=== PATIENT | female | born 1950 | race Caucasian/White ===

== ENCOUNTER 2023-09-20 11:15 | Outpatient (AMB) | payer MEDICARE, SELFPAY ==
--- NOTE | 2023-09-20 11:20 | A.OFFVIS_ITS ---
Intake Vital Signs 09/20/23 11:43 Height 5 ft 8 in Weight 190 lb BMI 28.9 BP 132/70 Blood Pressure Location Lt brachial Position Sitting Pulse 70 Pulse Source Pulse Oximeter Pulse Oximetry (%) 97 Oxygen Delivery Method Room Air Intake Visit Reasons: AWV Allergies No Known Allergies Allergy (Verified 09/20/23 11:21) Medication List - Last Reconciled 09/20/23 by Gena Ralph MD cholecalciferol (vitamin D3) 50 mcg PO DAILY ciclopirox 8% mL topical BEDTIME [coq 10 PO] levothyroxine mcg PO melatonin 10 mg PO BEDTIME PRN pravastatin 20 mg PO DAILY progesterone micronized PO rhubarb root extract (Estroven Complete Menopause Relief) mg PO HPI AWV HPI Details Pt c/o R shoulder pain worse at rest and at night for a few months. Pt tried PT last year and good relief, but the pain has been getting progressively worse and patient can not reach overhead or behind her back without pain. Initia unique the conversation about Advanced Directives. Advanced Directives help? patients prepare for current and future decisions about their medical treatment? and place of care. Discussed with patient that it is a process where a patients? current condition and prognosis are reviewed, their wishes for information? regarding their illness are elicited, and likely medical dilemmas are presented? and options discussed. The form can be amended as needed, reviewed yearly and? make changes as needed IPPE/AWV ? year old presents? for her ? Annual? Wellness Visit, initial visit.? Medical / Social History Reviewed? Past Medical History ?Yes? . ? [place]? of Care / Care Team list updated ?Yes . ? Surgical/Hospitalization? History ?Yes . ? Current Medications? (including OTC and supplements) ?Yes . ? Family History ?Yes? . ? Tobacco? Control form ?Yes . ? AUDIT-C (Alcohol use) form? ?Yes . ? Illicit drug use in Social? History ?Yes . ? Current diagnosis of? depression? ?No ? Appropriate PHQ2/PHQ9? completed ?Yes . ? Data entered by ?Medical? Tube Draw Helper and reviewed by provider ? Fall Risk ? Fall? History? Have you had any falls with? injury in the past year? ?No . ? Have you had two or more? falls in the past year? ?No . ? Fall Risk Assessment: ?No? falls in the past year . ? HRA filled out by? the patient, reviewed by Provider and scanned. ? IPPE/AWV ? Balance? [place]? ?Yes . ? Tandem? walk ?Yes . ? Walk and? Turn ?Yes . ? Rise from? sit to stand ?Yes . ?Vision? Corrective? lens ?Yes ? Vision? screen ? Up-to-date, has an appointment [] for vision? screening and glaucoma screening ?Hearing? Whisper? test ?pass .? Initiated the conversation about Advanced Directives. Advanced Directives help? patients prepare for current and future decisions about their medical treatment? and place of care. Discussed with patient that it is a process where a patients? current condition and prognosis are reviewed, their wishes for information? regarding their illness are elicited, and likely medical dilemmas are presented? and options discussed. The form can be amended as needed, reviewed yearly and? make changes as needed Written? Plan?Completed. See Patient? Documents. [facility] Medical History Annual physical exam Hyperglycemia Hyperlipidemia Hypothyroidism Normal pelvic exam Surgical History H/O colonoscopy Social History Housing: House Patient Tobacco Use Status: Former Tobacco user (30 years ago) e-Cigarette/Vaping Use: Never Used Current occupational status: retired Cognitive needs: No Hearing needs: No Vision needs: Yes Questionnaire Medicare Wellness Checkup [age] What gender do you identify with?: female During the past 4 weeks, how much have you been bothered by emotional problems such as feeling anxious, depressed, irritable, sad or downhearted, and blue?: not at all During the past 4 weeks, has your physical & emotional health limited your social activities with family, friends, neighbors, or groups?: not at all During the past 4 weeks, how much bodily pain have you generally had?: mild pain During the past 4 weeks, was someone available to help you if you needed & wanted help?: yes, as much as I wanted During the past 4 weeks, what was the hardest physical activity you could do for at least 2 minutes?: moderate Can you get to places out of walking distance without help? (For eg., can you travel alone on buses, taxis or drive your car?): Yes Can you go shopping for groceries or clothes without someone's help?: Yes Can you prepare your own meals?: Yes Can you do your housework without help?: Yes Because of any health problems, do you need the help of another person with your personal care needs such as eating, bathing, dressing or getting around the house?: No Can you handle your own money without help?: Yes During the past 4 weeks, how would you rate your health in general?: good During the past 4 weeks how have things been going for you?: pretty well Are you having difficulties driving your car?: no Do you always fasten your seat belt when you are in a car?: yes, usually During past 4 weeks, have you been bothered by the following: never: Falling or dizzy when standing up, Sexual problems?, Trouble eating well?, Teeth or denture problems?, Problems using the telephone? and Tiredness or fatigue? Have you fallen 2 or more times in the past year?: No Are you afraid of falling?: No Are you a smoker?: no During the past 4 weeks, how many drinks of wine, beer, or other alcoholic beverages did you have?: 2-5 drinks per week Do you exercise for about 20 minutes 3 or more times a week?: yes, some of the time Have you been given information to help with the following?: no: Hazards in your house that might hurt you? and no: Keeping track of your medications? How often do you have trouble taking medicines the way you have been told to take them?: I always take medicine as prescribed How confident are you that you can control & manage most of your health problems?: very confident What is your race?: White Mini Mental State Exam (MMSE) Orientation What is the (year) (season) (date) (day) (month)?: year, season, date, day and month Where are we (state) (county) (town or city) (hospital) (floor)?: state, county, town or city, hospital/clinic and floor Registration Name of 3 unrelated objects clearly and slowly, then ask patient to repeat all 3 of them. (1st repeat determines score. Make sure they can repeat all three): object 1, object 2 and object 3 Attention & Calculation (CHOOSE ONE) Ask pt to begin with 100 & count backward by 7. Stop after 5 repeats. If pt cannot ask them to spell the word WORLD backward.: 93 Spell WORLD backwards (DLROW): 5 letters Recall Ask patient to repeat the 3 items from question #3.: object 1, object 2 and object 3 Language Show patient a wristwatch & ask what it is. Repeat for pencil.: watch and pencil Ask the patient to repeat the phrase 'No ifs, ands, or buts' after you.: correct Ask the patient to 'take a piece of paper with their right hand' 'fold paper in half' 'place paper on floor': take paper in right hand, fold paper in half and place paper on floor Print the sentence 'CLOSE YOUR EYES' on a piece. If patient actually closes eyes then score.: followed written direction Give patient a blank piece of paper & ask to write a sentence. Score if it contains a noun & verb.: sentence contains subject and verb Score Score: 30 Activity of Daily Living Bathing - sponge bath, tub bath or shower: receives no assistance (gets in/out by self, if usual bathing means Dressing - getting clothes from closets & drawers, including inner/outer garments & fasteners.: gets clothes & gets completely dressed without help Toileting - going to the 'toilet room' for urine/bowel elimination & cleaning self/arranging clothes: goes to toilet room, cleans self, arranges clothes without help Transfer: moves in & out of bed and chair without help (may use support object) Continence: controls urination/bowel movements completely by self Feeding: feeds self without help Total Score: 0 Information obtained from: patient Using telephone: independent Traveling: independent Shopping: independent Preparing meals: independent Housework: independent Taking medicine: independent Managing money: independent PHQ-9 Over the last 2 weeks, how often have you been bothered by any of the following problems? 1. Little interest or pleasure in doing things: not at all 2. Feeling down, depressed, or hopeless: not at all 3. Trouble falling or staying asleep, or sleeping too much: not at all 4. Feeling tired or having little energy: not at all 5. Poor appetite or overeating: not at all 6. Feeling bad about yourself - or that you are a failure or have let yourself or your family down: not at all 7. Trouble concentrating on things, such as reading the newspaper or watching television: not at all 8. Moving or speaking so slowly that other people could have noticed. Or the opposite - being so fidgety or restless that you have been moving around a lot more than usual: not at all 9. Thoughts that you would be better off or of hurting yourself in some way: not at all Total score: 0 Depression Screening Interpretation: Negative Depression Screening Done: Yes Source: Developed by Drs. Wade Sevilla, Lesvia De Souza, Addy Gifford and colleagues, with an educational anaid from [employer]. Review of Systems Const All systems reviewed & are unremarkable except as noted in HPI and below Eyes Reports no additional complaints ENT Reports no additional complaints Card Reports no additional complaints Resp Reports no additional complaints GI Reports no additional complaints Reports no additional complaints Physical Exam Vital Signs: Last Vital Signs Pulse 70 09/20/23 11:43 BP 132/70 09/20/23 11:43 Pulse Ox 97 09/20/23 11:43 Oxygen Delivery Method Room Air 09/20/23 11:43 BMI result Body Mass Index 28.9 Const General: no acute distress HEENT Head: Yes normal to inspection Neck Neck: Yes supple Resp Effort & Inspection: normal respiratory effort Auscultation: clear to auscultation bilaterally Cardio Rhythm: regular rhythm Heart sounds: S1 normal heart sound present and S2 normal heart sound present GI Inspection: Yes normal to inspection Palpation (GI): Soft to palpation Auscultation: normal bowel sounds Extrem Other: There is significantly decreased range of motion right shoulder anterior lateral aspect tenderness Assessment & Plan Assessment & Plan (1) Right shoulder pain: Code(s): M25.511 - Pain in right shoulder Plan: Check x-ray and MRI of right shoulder to evaluate for rotator cuff pathology patient will be referred to orthopedic surgeon of her choice when results are available (2) Annual physical exam: Code(s): Z00.00 - Encounter for general adult medical examination without abnormal findings Plan: Well-balanced diet regular physical activity discussed with the patient. (3) Hyperlipidemia: Code(s): E78.5 - Hyperlipidemia, unspecified Plan: Continue pravastatin (4) Hypothyroidism: Comment: f/u by Endocrinology Code(s): E03.9 - Hypothyroidism, unspecified Plan: Continue levothyroxine (5) Hyperglycemia: Code(s): R73.9 - Hyperglycemia, unspecified Plan: Continue ADA diet (6) Vitamin B12 deficiency: Code(s): E53.8 - Deficiency of other specified B group vitamins Plan: Continue vitamin B12 supplement (7) Vitamin D deficiency: Code(s): E55.9 - Vitamin D deficiency, unspecified Plan: Continue vitamin-D supplement Orders: Orders XR shoulder RT min 2V Today M25.511 - Pain in right shoulder PT Evaluation and Treatment Today M25.511 - Pain in right shoulder Comprehensive [place]. Panel Fast 1 Year E03.9 - Hypothyroidism, unspecified, E53.8 - Deficiency of other specified B group vitamins, E55.9 - Vitamin D deficiency, unspecified, E78.5 - Hyperlipidemia, unspecified, R73.9 - Hyperglycemia, unspecified, Z00.00 - Encounter for general adult medical examination without abnormal findings Vitamin B12 and Folate 1 Year E03.9 - Hypothyroidism, unspecified, E53.8 - Deficiency of other specified B group vitamins, E55.9 - Vitamin D deficiency, unspecified, E78.5 - Hyperlipidemia, unspecified, R73.9 - Hyperglycemia, unspecified, Z00.00 - Encounter for general adult medical examination without abnormal findings Hemoglobin A1c 1 Year E03.9 - Hypothyroidism, unspecified, E53.8 - Deficiency of other specified B group vitamins, E55.9 - Vitamin D deficiency, unspecified, E78.5 - Hyperlipidemia, unspecified, R73.9 - Hyperglycemia, unspecified, Z00.00 - Encounter for general adult medical examination without abnormal findings Vitamin D 25-OH Total 1 Year E03.9 - Hypothyroidism, unspecified, E53.8 - Deficiency of other specified B group vitamins, E55.9 - Vitamin D deficiency, unspecified, E78.5 - Hyperlipidemia, unspecified, R73.9 - Hyperglycemia, unspecified, Z00.00 - Encounter for general adult medical examination without abnormal findings MR shoulder RT wo con Today M12.811 - Other specific arthropathies, not elsewhere classified, right shoulder Complete Blood Count Auto Diff 1 Year E03.9 - Hypothyroidism, unspecified, E53.8 - Deficiency of other specified B group vitamins, E55.9 - Vitamin D deficiency, unspecified, E78.5 - Hyperlipidemia, unspecified, R73.9 - Hyperglycemia, unspecified, Z00.00 - Encounter for general adult medical examination without abnormal findings Lipid Panel 1 Year E03.9 - Hypothyroidism, unspecified, E53.8 - Deficiency of other specified B group vitamins, E55.9 - Vitamin D deficiency, unspecified, E78.5 - Hyperlipidemia, unspecified, R73.9 - Hyperglycemia, unspecified, Z00.00 - Encounter for general adult medical examination without abnormal findings Referrals Cologuard Test Z12.11 - Encounter for screening for malignant neoplasm of colon, Z12.12 - Encounter for screening for malignant neoplasm of rectum Quality Reporting (2019) Depression/Bipolar (159/160/161/177) PHQ-9: Total score: 0 Coding Level of Care Code Medicare Subsequent (G0439) Diagnoses Right shoulder pain M25.511 Annual physical exam Z00.00 Hyperlipidemia E78.5 Hypothyroidism E03.9 Hyperglycemia R73.9 Vitamin B12 deficiency E53.8 Vitamin D deficiency E55.9 CPT Codes Advance Care Planning - Advance Care Planning discussion: On file, no changes ([id number]) Advance Care Planning - Time spent: 1-15 minutes, on File ([id number]) Advance Care Planning Advance Care Planning discussion: On file, no changes Forms completed: Health Care Proxy Time spent: 1-15 minutes, on File
[2023-09-20 11:43] VITALS: BP 132/70; PULSE 70; O2SAT 97; BMI 28.9
== END 2023-09-20 12:36 | disposition home or self-care (01) ==
PROVIDERS: PCP Internal Medicine; Visit Provider Internal Medicine
DX: Z00.00 Encounter for general adult medical examination without abnormal findings (principal); M25.511 Pain in right shoulder; E78.5 Hyperlipidemia, unspecified; E03.9 Hypothyroidism, unspecified; R73.9 Hyperglycemia, unspecified; E53.8 Deficiency of other specified B group vitamins; E55.9 Vitamin D deficiency, unspecified
CPT/HCPCS: 1123F; G0439

== ENCOUNTER 2023-09-20 12:36 | Outpatient (REF) | payer MEDICARE, SELFPAY ==
--- NOTE | ~2023-09-20 | XR_ITS ---
EXAMINATION: XR SHOULDER, RIGHT CLINICAL INFORMATION: Pain in right shoulder COMPARISON: None available. TECHNIQUE: AP external rotation, Grashey, scapular Y, and axillary views of the right shoulder. FINDINGS: Glenohumeral joint: Large marginal osteophyte along the inferior aspect of humeral head. Severe joint space narrowing. Mild osteoarthritis of the acromioclavicular joint with small marginal osteophytes. Incidental note made of spondylosis of the partially visualized cervical spine XR/XR shoulder RT min 2V IMPRESSION: Advanced osteoarthritis of the glenohumeral joint. Mild osteoarthritis of acromioclavicular joint.
== END 2023-09-20 12:37 | disposition home or self-care (01) ==
LOC: HO.HMGCX 12:36
PROVIDERS: PCP Internal Medicine; Visit Provider Internal Medicine
DX: M25.511 Pain in right shoulder (principal)
CPT/HCPCS: 73030

== ENCOUNTER 2024-06-26 13:33 | Outpatient (REF) | payer MEDICARE, SELFPAY ==
[2024-06-26 16:10] LABS: MANUAL DIFF FLAG NO
[2024-06-26 16:18] LABS: Basophils Percent Auto 0.5 % (0-2); Eosinophils Absolute Auto 0.3 X10*3/uL (0.0-0.4); Eosinophils Percent Auto 2.9 % (0-4); Hematocrit 44.4 % (37.0-47.0); Hemoglobin 14.3 g/dl (12.0-16.0); Imm Gran Abs Auto 0.04 X10*3/uL (0.00-0.03); Imm Gran Pct Auto 0.5 % (0.0-0.4); Lymphocytes Absolute Auto 2.2 X10*3/uL (1.2-4.9); Lymphocytes Percent Auto 25.6 % (20-40); Mean Corpuscular HGB Conc 32.2 g/dl (31.0-35.0); Mean Corpuscular Hemoglobin 29.4 pg (27.0-33.0); Mean Corpuscular Volume 91.2 fL (80.0-98.0); Mean Platelet Volume 10.3 fL (9.4-12.3); Monocytes Absolute Auto 0.5 X10*3/uL (0.1-1.2); Monocytes Percent Auto 5.7 % (2-11); Neutrophils Absolute Auto 5.6 x10*3/uL (2.0-8.3); Neutrophils Percent Auto 64.8 % (45-73); Platelet Count 364 X10*3/uL (160-400); Red Blood Count 4.87 X10*6/uL (4.20-5.50); Red Cell Distribution Width 12.3 % (11.0-16.0); White Blood Count 8.6 X10*3/uL (4.8-10.8)
[2024-06-26 16:24] LABS: Estimated Average Glucose 117 mg/dL; Hemoglobin A1c % 5.7 % (<6.0)
[2024-06-26 16:27] LABS: B Type Natriuretic Peptide 19 pg/mL (<100)
--- OUTSIDE RECORDS SUMMARY | 2024-06-26 17:00 | XMS_ITS | Encounter Summary ---
Author Organization [facility] Address [phone] [place] [address] Care Team Providers Care Walnut Dehydrator Operator Name Role Phone Gena Ralph MD Primary Care Provider [phone] Encounter Details Date Type Department Care Team (Late st Contact Info) Description 05/04/2024 Orders Only [facility] [address] [place] [address] Sandee Harrison MA [address] [place] [phone] [email or web address] Acquired hypothyroidism Social History Tobacco Use Types [...] AM EDT Office Visit [facility] [address] [place] [address] Marlys Fournier MD [address] [place] [phone] [email or web address] documented as of this encounter Procedures Procedure Name Priority Date/Time Associated Diagnosis Comments TSH WITH REFLEX Routine 05/01/2024 12:04 PM EST Acquired hypothyroidism documented in this encounter Results * TSH with reflex (05/01/2024 12:04 PM EST) Blood Marlys Fournier MD LAB BLOOD ORDE [facility] [address] [address] documented in this encounter Visit Diagnoses Diagnosis Acquired hypothyroidism Unspecified hypothyroidism documented in this encounter Care Teams Walnut Dehydrator Operator Relationship Specialty Start Date End Date Gena Ralph MD [address] [place] [address] PCP - General Internal Medicine 07/26/23 documented as of this encounter Additional Source Comments The information contained in this document represents components of the legal health record. It is not the complete legal health record.[facility]
--- OUTSIDE RECORDS SUMMARY | 2024-06-26 17:00 | XMS_ITS | Encounter Summary ---
Author Organization [facility] Address [phone] [facility], [facility] [place] [address] Care Team Providers Care Director Stage Name Role Phone Gena Ralph MD Primary Care Provider [phone] Encounter Details Date Type Department Care Team (Late st Contact Info) Description 06/14/2024 Telephone [facility] [address] [place] [address] Marlys Fournier MD [address] [place] [phone] [email or web address] Social History Tobacco Use Types Packs/Day Years [...] 11:00 AM EDT Office Visit [facility] [address] [place] [address] Marlys Fournier MD [address] [place] [phone] [email or web address] Scheduled Orders Name Type [...] hypothyroidism documented in this encounter Care Teams Director Stage Relationship Specialty Start Date End Date Gena Ralph MD [address] [place] [address] PCP - General Internal Medicine 07/26/23 documented as of this encounter Additional Source Comments The information contained in this document represents components of the legal health record. It is not the complete legal health record.[facility]
--- OUTSIDE RECORDS SUMMARY | 2024-06-26 17:00 | XMS_ITS | Clinical Summary ---
Author Organization [facility] Address [phone] [address] [place] [address] Care Team Providers Care Precision Devices Inspector/Tester Name Role Phone Gena Ralph MD Primary Care Provider [phone] Allergies No known active allergies Medications Medication [...] Team Description 06/14/2024 Telephone [facility] [address] [place] [address] Marlys Fournier MD 05/04/2024 Orders Only [facility] [address] [place] [address] Sandee Harrison MA Acquired hypothyroidism from Last [...] 11:00 AM EDT Office Visit [facility] [address] [place] [address] [place] [address] Marlys Fournier MD [address] [place] [id number] [email or web address] Health Maintenance Due Date Last Done Comments [...] Marlys Fournier MD LAB BLOOD MADALYN [facility] Organization Address City/State/ZIP Co de Phone Number [facility] [address] [place] [address] * Outside Imaging Report Only (04/04/2024) Scanning [...] Gonzales, Opal Personal/Famil y Self [address] [facility] [place] [address] Gonzales, Opal Personal/Famil y Self [address] [facility] [place] [address] Gonzales, Opal Personal/Famil y Self [address] [facility] [place] [address] Gonzales, Opal Personal/Famil y Self [address] [facility] [facility] [address] [place] [address] Care Teams Precision Devices Inspector/Tester Relationship Specialty Start Date End Date Gena Ralph MD [address] [place] [address] PCP - General Internal Medicine 07/26/23 Additional Source Comments The information contained in this document represents components of the legal health record. It is not the complete legal health record.[facility]
--- OUTSIDE RECORDS SUMMARY | 2024-06-26 17:00 | XMS_ITS | Clinical Summary ---
Author Organization [facility] Address [address] [place] [address] Care Team Providers Care Senior Ux Designer Name Role Phone Pcp, No Primary Care [...] age to complete this topic Care Teams Senior Ux Designer Relationship Specialty Start Date End Date Pcp, No PCP - General General Medicine 04/26/20
[2024-06-26 17:05] LABS: Folate 9.4 ng/mL (> or = 4.0); Vitamin B12 272 pg/mL (200-900)
[2024-06-26 17:28] LABS: Alanine Aminotransferase 19 U/L (0-31); Albumin Level 4.2 g/dL (3.5-5.0); Anion Gap 12 (12-20); Aspartate Amino Transferase 24 U/L (5-31); Bilirubin Total 0.3 mg/dL (0.0-1.0); Blood Urea Nitrogen 15 mg/dL (9-16); Calcium 9.5 mg/dL (8.4-10.2); Carbon Dioxide 28 mmol/L (22-29); Chloride 104 mmol/L (96-108); Estimated Glomerular Filt Rate > 60; Glucose Random 140 mg/dL (60-115); Potassium 4.2 mmol/L (3.3-5.1); Sodium 140 mmol/L (135-145); Total Protein 8.2 g/dL (6.5-8.0)
[2024-06-26 17:56] LABS: Alkaline Phosphatase 99 U/L (39-117)
== END 2024-06-26 13:34 | disposition home or self-care (01) ==
LOC: HO.HMGCLDS 13:33
PROVIDERS: PCP Internal Medicine; Visit Provider Internal Medicine
DX: Z13.89 Encounter for screening for other disorder (principal)
CPT/HCPCS: 36415; 80053; 82607; 82746; 83036; 83880; 85025; 96127; 99212

== ENCOUNTER 2024-06-26 13:33 | Outpatient (AMB) | payer MEDICARE, SELFPAY ==
--- NOTE | 2024-06-26 13:34 | MHC.PC.OV ---
Vital Signs 06/26/24 13:35 Height 5 ft 8 in Weight 191 lb BMI 29.0 BP 139/88 Blood Pressure Location Rt brachial Position Sitting Respiration 20 Pulse 87 Pulse Source Pulse Oximeter Temp 98.3 F Temp Source Oral Pulse Oximetry (%) 97 Oxygen Delivery Method Room Air Intake Visit Reasons: Swollen foot and Ankle Intake Note: Pt is here today for a sick visit. Pt c/o swollen L foot and ankle. Allergies No Known Allergies Allergy (Verified 09/20/23 11:21) Tobacco use date assessed: 06/26/24 Fall risk assessment: No Falls in past year Last assessed Fall Risk: 06/26/24 Dental Screening Dental Screen Date: 06/26/24 Did you have a dental visit in the last 12 months?: Yes Did you have a dental problem in the last 6 months where you did not have access to dental care?: No Was dental information given to patient?: Patient has dentist HPI Swollen foot and Ankle HPI Details Patient presents complaining of a chronic for at least 6 months left lower extremity swelling getting worse for the last few weeks. She denies leg pain, erythema, warmth, injury, fever chills dyspnea on exertion PND orthopnea chest pain palpitations abdominal pain or swelling. [facility] Medical History Annual physical exam Hyperglycemia Hyperlipidemia Hypothyroidism Normal pelvic exam Surgical History H/O colonoscopy Social History Housing: House Patient Tobacco Use Status: Former Tobacco user (30 years ago) e-Cigarette/Vaping Use: Never Used service: No Current occupational status: retired Cognitive needs: No Hearing needs: No Vision needs: Yes Questionnaire PHQ-9 Over the last 2 weeks, how often have you been bothered by any of the following problems? 1. Little interest or pleasure in doing things: not at all 2. Feeling down, depressed, or hopeless: not at all 3. Trouble falling or staying asleep, or sleeping too much: not at all 4. Feeling tired or having little energy: not at all 5. Poor appetite or overeating: not at all 6. Feeling bad about yourself - or that you are a failure or have let yourself or your family down: not at all 7. Trouble concentrating on things, such as reading the newspaper or watching television: not at all 8. Moving or speaking so slowly that other people could have noticed. Or the opposite - being so fidgety or restless that you have been moving around a lot more than usual: not at all 9. Thoughts that you would be better off or of hurting yourself in some way: not at all Total score: 0 Depression Screening Interpretation: Negative Depression Screening Done: Yes 68973 - PHQ-9 Billing: Yes Source: Developed by Drs. Wade Sevilla, Lesvia De Souza, Addy Gifford and colleagues, with an educational anaid from [employer]. Thrive Questionnaire Date Thrive assessed: 06/26/24 I am a: Patient What is your living situation today?: I have a steady place to live Within the past 12 months, did the food you bought not last and you didn't have the money to get more?: Never true Within the past 12 months, did you worry whether your food would run out before you got money to buy more?: Never true Do you have trouble paying for medicines?: No Do you have trouble getting transportation to medical appointments?: No Do you have trouble paying your heating and electricity bill?: No Do you have trouble taking care of your child, family member or friend?: No Do you have trouble with day-to-day activities such as bathing, preparing meals, shopping, managing finances, etc.?: No Are you currently unemployed and looking for a job?: No Are you interested in more education?: No Please select the resources that you would like help with: None Currently or been in a relationship where the following occur: No concerns reported THRIVE Score: 0 AUDIT C Alcohol Use Questionnaire (AUDIT-C) 1. How often do you have a drink containing alcohol?: 2-4 times a month 2. How many drinks containing alcohol do you have on a typical day when you are drinking?: 1 or 2 3. How often do you have six or more drinks on one occasion?: Never Total Score: 2 FINESSE-7 AMB Questionnaire FINESSE-7 Date FINESSE - 7 assessed: 06/26/24 Feeling nervous, anxious, or on edge: 0 = Not at all Not being able to stop or control worryin = Not at all Worrying too much about different things: 0 = Not at all Trouble relaxin = Not at all Being so restless that it is hard to sit still: 0 = Not at all Becoming easily annoyed or irritable: 0 = Not at all Feeling afraid as if something awful might happen: 0 = Not at all Total FINESSE-7 score (0-4 normal; 5-9 mild; 10-14 moderate; 15-21 severe): 0 Source: Developed by Drs. Wade Sevilla, Lesvia De Souza, Addy Gifford and colleagues, with an educational anaid from [employer]. FINESSE-7 Assessment Billing FINESSE-7 Assessment Tool: FINESSE-7 Assessment 38920 Review of Systems Const All systems reviewed & are unremarkable except as noted in HPI and below Eyes Reports no additional complaints ENT Reports no additional complaints Card Reports no additional complaints Resp Reports no additional complaints GI Reports no additional complaints Physical exam (Primary Care) Vital Signs: Last Vital Signs Temp 98.3 F 06/26/24 13:35 Pulse 87 06/26/24 13:35 Resp 20 06/26/24 13:35 Pulse Ox 97 06/26/24 13:35 Oxygen Delivery Method Room Air 06/26/24 13:35 BMI result Body Mass Index 29.0 Tobacco/Smoking Status: Tobacco use Status Tobacco use date assessed 06/26/24 06/26/24 13:39 Patient Tobacco Use Status Former Tobacco user (30 06/26/24 13:39 years ago) e-Cigarette/Vaping Use Never Used 06/26/24 13:37 PHQ-9: PHQ-9 Score PHQ-9: Total score 0 06/26/24 13:39 Depression Screening Interpretation: Negative Thrive Assessment: Date of Thrive Assessment Date Thrive assessed 06/26/24 06/26/24 13:39 Currently or been in a relationship where the following occur: No concerns reported Const General: no acute distress HENMT Head: Yes normal to inspection Eyes General: appearance normal, both eyes and all related structures Resp Effort & Inspection: normal respiratory effort Auscultation: clear to auscultation bilaterally Cardio Rhythm: regular rhythm Heart sounds: S1 normal heart sound present and S2 normal heart sound present GI Inspection: Yes normal to inspection Palpation (GI): Soft to palpation Percussion: Yes normal to percussion Auscultation: normal bowel sounds Extrem Other: There is a 2+ pitting edema in left fluid ankle and calf area, there is no erythema warmth, there is slightly decreased range of motion of the left ankle but no tenderness Coding Level of Care Code Est Pt Level 4 (30603) Diagnoses Edema R60.9 Vitamin D deficiency E55.9 Vitamin B12 deficiency E53.8 Hypothyroidism E03.9 Additional Codes FINESSE-7 Assessment Billing - FINESSE-7 Assessment Tool: FINESSE-7 Assessment 45509 ([id number]) PHQ-9 - 52740 - PHQ-9 Billing: Yes ([id number]) Assessment & Plan Assessment & Plan (1) Edema: Comment: Left lower extremity Code(s): R60.9 - Edema, unspecified Category: Medical Plan: Obtain Doppler to rule out DVT, check basic blood work and BNP. Start hydrochlorothiazide 25 mg daily to treat elevated blood pressure and edema. Basic metabolic panel will be checked in 2 weeks. Patient will have it done in [place] where she is currently living. (2) Vitamin D deficiency: Code(s): E55.9 - Vitamin D deficiency, unspecified Category: Medical Plan: Check vitamin-D level (3) Vitamin B12 deficiency: Code(s): E53.8 - Deficiency of other specified B group vitamins Category: Medical Plan: Check vitamin B12 level (4) Hypothyroidism: Comment: f/u by Endocrinology Code(s): E03.9 - Hypothyroidism, unspecified Category: Medical Plan: Established with endocrinology continue levothyroxine Orders: Orders US venous duplex LE LT Today R60.9 - Edema, unspecified Complete Blood Count Auto Diff Today E53.8 - Deficiency of other specified B group vitamins, E55.9 - Vitamin D deficiency, unspecified, R60.9 - Edema, unspecified Comprehensive Met. Panel Today E53.8 - Deficiency of other specified B group vitamins, E55.9 - Vitamin D deficiency, unspecified, R60.9 - Edema, unspecified B Type Natriuretic Peptide Today E53.8 - Deficiency of other specified B group vitamins, E55.9 - Vitamin D deficiency, unspecified, R60.9 - Edema, unspecified Hemoglobin A1c Today E53.8 - Deficiency of other specified B group vitamins, E55.9 - Vitamin D deficiency, unspecified, R60.9 - Edema, unspecified Vitamin B12 and Folate Today E53.8 - Deficiency of other specified B group vitamins, E55.9 - Vitamin D deficiency, unspecified, R60.9 - Edema, unspecified Basic Metabolic Panel 2 Weeks I10 - Essential (primary) hypertension Medications: New hydrochlorothiazide 25 mg PO DAILY 90 tabs 0RF
[2024-06-26 13:35] VITALS: BP 139/88; PULSE 87; RESP 20; TEMP 36.8; O2SAT 97; BMI 29.0
--- OUTSIDE RECORDS SUMMARY | 2024-06-26 15:32 | XMS_ITS | Clinical Summary ---
Author Organization [facility] Address [address] [place] [address] Care Team Providers Care Slicing Machine Operator Name Role Phone Pcp, No Primary Care Provider Unavailabl e Allergies No known active allergies Medications No known medications Social History Tobacco Use Types Packs/Day Years Used Date Smoking Tobacco: Never Smokeless Tobacco: Never Sex and Gender Information Value Date Recorded Sex Assigned at Not on file Gender Identity Not on file Sexual Orientation Not on file Last Filed Vital Signs Vital Sign Reading Time Taken Comments Blood Pressure 129/78 05/02/2020 10:53 AM EST Pulse 73 05/02/2020 10:53 AM EST Temperature 36.8 ??C (98.3 ??F) 05/02/2020 10:[address] Respiratory Rate - - Oxygen Saturation 96% 05/02/2020 10:53 AM EST Inhaled Oxygen Concentration - - Weight 81.6 kg (180 lb) 05/02/2020 10:53 AM EST Height 172.7 cm (5' 8 ) 05/02/2020 10:53 AM EST Body Mass Index 27.37 05/02/2020 10:53 AM EST Plan of Treatment Health Maintenance Due Date Last Done Comments Hepatitis C Virus Screening 1950 DTaP/Tdap/Td Vaccines (1 - Tdap) 11/21/1971 Mammogram 1992 Colonoscopy 1997 Pneumococcal Vaccines 50+ (1 of 1 - PCV) 2002 Zoster (Shingles) Vaccine (1 of 2) 2002 DXA Bone Density (Females,Ages 65 and older) 2017 Influenza Vaccine 12/02/2023 COVID-19 Vaccine (3 - 2023-2 5 season) 2024 07/15/2020, 06/24/2020 RSV Vaccine 60 years and older and Patients (1 - 1-dose 75+ series) 11/21/2027 Hepatitis B Vaccines Aged Out No long er eligible based on patient's age to complete this topic Care Teams Slicing Machine Operator Relationship Specialty Start Date End Date Pcp, No PCP - General General Medicine 04/26/20
--- OUTSIDE RECORDS SUMMARY | 2024-06-26 15:32 | XMS_ITS | Clinical Summary ---
Author Organization [facility] Address [phone] [address] [place] [address] Care Team Providers Care Formulation Scientist Name Role Phone Gena Ralph MD Primary Care Provider [phone] Allergies No known active allergies Medications Medication Sig Dispensed Refills Start Date End Date Status pravastatin (PRAVACHOL) 20 MG tablet Take 20 mg by mouth daily. 10/07/2023 Active cholecalciferol (VITAMIN D3) 2,000 unit capsule Take by mouth daily. Active coenzyme Q10 100 mg capsule Take 100 mg by mouth daily. Active melatonin 10 mg Cap Take by mouth. Active Medication-Free TextIndications:Acqu ired hypothyroidism Take 1 capsule by mouth daily. THYROID EXTRACT (METHOCEL/JUANA JAY) 10.5 MG CAP 90 capsule 1 02/29/2024 Active LEVOXYL 25 mcg tabletIndications:Ac quired hypothyroidism TAKE 1 TABLET BY MOUTH daily five days/week, skip two days/week, or as directed. 66 tablet 1 06/14/2024 Active LEVOXYL 25 mcg tabletIndications:Ac quired hypothyroidism TAKE 1 TABLET BY MOUTH daily six days/week, skip the 7th day, or as directed. 78 tablet 1 01/24/2024 Discontinue d(Dose adjustment) Active Problems Problem Noted Date Diagnosed Date Acquired hypothyroidism 10/14/2023 Assessment & Plan (10/14/2023 9:49 AM EDT): Clinically euthyroid. Reports good consistency taking rx appropriately. TSH is mildly low on current rx. Will cut back on levoxyl from 8/week to 7/week (1 tablet daily). Will repeat labs in 2-3 months & adjust further as appropriate. To call/message via portal if hasn't heard from me with results within 1-2 weeks. If levels normal, will repeat labs yearly, sooner prn symptoms of thyroid dysfunction or > 10-15# weight change, or as otherwise clinically indicated. Multinodular goiter 10/14/2023 Assessment & Plan (10/14/2023 9:50 AM EDT): S/p hemithyroidectomy. No compressive symptoms. Exam unrevealing. Will obtain records & previous u/s reports/images & determine need for & timing of further imaging. Hyperlipidemia Encounters Date Type Department Care Team Description 06/14/2024 Telephone [facility] [address] [place] [address] Marlys Fournier MD 05/04/2024 Orders Only [facility] [address] [place] [address] Sandee Harrison MA Acquired hypothyroidism from Last 3 Months Family History Medical History Relation Comments Cardiovascular disease Brother Diabetes Brother Cardiovascular disease Father Diabetes Father Cardiovascular disease Mother Diabetes Sister Thyroid disease Neg Hx Relation Status Comments Brother Father Mother Sister Social History Tobacco Use Types Packs/Day Years [...] with a working camera? Not on file Sex and Gender Information Value Date Recorded Sex Assigned at Not on file Gender Identity Not on file Sexual Orientation Not on file Last Filed Vital Signs Vital Sign Reading Time Taken Comments Blood Pressure 120/70 10/14/2023 9:11 AM EDT Pulse 61 10/14/2023 9:11 AM EDT Temperature - - Respiratory Rate - - Oxygen Saturation 97% 10/14/2023 9:11 AM EDT Inhaled Oxygen Concentration - - Weight 85.7 kg (189 lb) 10/14/2023 9:11 AM EDT Height 171.5 cm (5' 7.52 ) 10/14/2023 9:11 AM ED T Body Mass Index 29.15 10/14/2023 9:11 AM EDT Plan of Treatment Upcoming Encounters Date Type Department Care Team (Late st Contact Info) Description 10/18/2024 11:00 AM EDT Office Visit [facility] [address] [place] [address] [place] [address] Marlys Fournier MD [address] [place] [phone] [email or web address] Health Maintenance Due Date Last Done Comments Adult Td,Tdap Booster 1950 LIPID PANEL 1950 DEPRESSION SCREENING 1964 SMOKING Hx and SMOKELESS TOBACCO SCREENING 1965 HEPATITIS B SCREENING 1970 HEPATITIS C SCREENING 1970 MAMMOGRAM 1992 COLOGUARD 1997 COLONOSCOPY 1997 COLORECTAL CANCER SCREENING 1997 FIT TEST 1997 FOBT 1997 SIGMOIDOSCOPY 1997 VIRTUAL COLONOSCOPY 1997 PNEUMOCOCCAL VACCINES (50+ years) (1 of 1 - PCV) 2002 OSTEOPOROSIS SCREENING INITI AL (ONE-TIME) 2017 ZOSTER VACCINES (2 of 3) 12/22/2017 10/27/2017 INFLUENZA VACCINE (#1) 2023 01/25/2018 COVID-19 VACCINE (1 - 2023-2 5 season) 2024 TSH LEVEL 05/01/2025 05/01/2024, 01/22/2024, 10/06/2023 RSV VACCINE (1 - 1-dose 75+ series) 11/21/2027 HEPATITIS A VACCINES Aged Out No long er eligible based on patient's age to complete this topic HEPATITIS B VACCINES Aged Out No long er eligible based on patient's age to complete this topic HIB VACCINES Aged Out No longer eligi ble based on patient's age to complete this topic MENINGOCOCCAL VACCINES (ACWY) Aged Out No longer eligible based on patient's age to complete this topic Medical Devices Not on file Procedures Procedure Name Priority Date/Time Associated Diagnosis Comments TSH WITH REFLEX Routine 05/01/2024 12:04 PM EST Acquired hypothyroidism OUTSIDE PATHOLOGY 04/04/2024 OUTSIDE LAB 04/04/2024 OUTSIDE LAB 04/04/2024 OUTSIDE LAB 04/04/2024 OUTSIDE LAB 04/04/2024 OUTSIDE LAB 04/04/2024 OUTSIDE IMAGING 04/04/2024 OUTSIDE IMAGING 04/04/2024 from Last 3 Months Results * TSH with reflex (05/01/2024 12:04 PM EST) Blood Marlys Fournier MD LAB BLOOD MADALYN WINTER [facility] Organization Address City/State/ZIP Co de Phone Number [facility] [address] [place] [address] * Outside Imaging Report Only (04/04/2024) Scanning Interface Provider IMG XR CHEST * Outside Imaging Report Only (04/04/2024) Scanning Interface Provider IMG XR CHEST * Outside Lab (04/04/2024) Only the most recent of5 resultswithin the time period is included. Scanning Interface Provider LAB BLOOD OR DERABLES * Outside Pathology (04/04/2024) Scanning Interface Provider PATHOLOGY OR DERABLES from Last 3 Months Gonzales, Opal Personal/Famil y Self 1950 [address] [facility] [place] [address] Gonzales, Opal Personal/Famil y Self 1950 [address] [place] [address] Gonzales, Opal Personal/Famil y Self 1950 [address] [facility] [address] [place] [address] Care Teams Formulation Scientist Relationship Specialty Start Date End Date Gena Ralph MD [address] [place] [address] PCP - General Internal Medicine 07/26/23 Additional Source Comments The information contained in this document represents components of the legal health record. It is not the complete legal health record.[facility]
--- OUTSIDE RECORDS SUMMARY | 2024-06-26 15:32 | XMS_ITS | Encounter Summary ---
Author Organization [facility] Address [phone] [place] [address] Care Team Providers Care Senior Marketing Engineer Name Role Phone Gena Ralph MD Primary Care Provider [phone] Encounter Details Date Type Department Care Team (Late st Contact Info) Description 05/04/2024 Orders Only [facility] [address] [place] [address] Sandee Harrison MA [address] [place] [phone] [email or web address] Acquired hypothyroidism Social History Tobacco Use Types Packs/Day Years [...] AM EDT Office Visit [facility] [address] [place] [address] Marlys Fournier MD [address] [place] [phone] [email or web address] documented as of this encounter Procedures Procedure Name Priority Date/Time Associated Diagnosis Comments TSH WITH REFLEX Routine 05/01/2024 12:04 PM EST Acquired hypothyroidism documented in this encounter Results * TSH with reflex (05/01/2024 12:04 PM EST) Blood Marlys Fournier MD LAB BLOOD ORDE MAGGY [address] [address] documented in this encounter Visit Diagnoses Diagnosis Acquired hypothyroidism Unspecified hypothyroidism documented in this encounter Care Teams Senior Marketing Engineer Relationship Specialty Start Date End Date Gena Ralph MD [address] [place] [address] PCP - General Internal Medicine 07/26/23 documented as of this encounter Additional Source Comments The information contained in this document represents components of the legal health record. It is not the complete legal health record.[facility]
--- OUTSIDE RECORDS SUMMARY | 2024-06-26 15:32 | XMS_ITS | Encounter Summary ---
Author Organization [facility] Address [phone] [facility] [place] [address] Care Team Providers Care Airplane Designer Name Role Phone Gena Ralph MD Primary Care Provider [phone] Encounter Details Date Type Department Care Team (Late st Contact Info) Description 06/14/2024 Telephone [facility] [address] [place] [address] Marlys Fournier MD [address] [place] [phone] [email or web address] Social History Tobacco Use Types Packs/Day Years [...] on file documented as of this encounter Progress Notes * Silvia Card MA - 06/15/2024 8:51 AM EST Called patient and relayed Dr. Fournier's message. Patient expressed understanding and agreement to plan, had no questions. Mailed lab orders * Marlys Fournier MD - 06/14/2024 2:25 PM EST Pls contact pt, kahlil for delay. Last labs were similar to previous, normal, but indicate the dose of medication is bordering on too high. I have she is doing the extract every day & the levothyroxine 25 mcg six days/week. Let's continue the extract daily, but lower the levothyroxine to five days/week. Repeat labs in 2 months. Orders in, send slip, call us when labs are done so we know to track down. documented in this encounter Plan of Treatment Upcoming Encounters Date Type Department Care Team (Late st Contact Info) Description 10/18/2024 11:00 AM EDT Office Visit [facility] [address] [place] [address] Marlys Fournier MD [address] [place] [address] [email or web address] Scheduled Orders Name Type Priority Associated Diagnoses Orde r Schedule Free T4 Lab Routine Acquired hypothyroidism Expected: 08/12/2024 (Approximate), Expires: 06/14/2025 TSH Lab Routine Acquired hypothyroidism Expected: 08/12/2024 (Approximate), Expires: 06/14/2025 Free T3 Lab Routine Acquired hypothyroidism Expected: 08/12/2024 (Approximate), Expires: 06/14/2025 documented as of this encounter Visit Diagnoses Diagnosis Acquired hypothyroidism- Primary Unspecified hypothyroidism documented in this encounter Care Teams Airplane Designer Relationship Specialty Start Date End Date Gena Ralph MD [address] [place] [address] PCP - General Internal Medicine 07/26/23 documented as of this encounter Additional Source Comments The information contained in this document represents components of the legal health record. It is not the complete legal health record.[facility]
== END 2024-06-26 15:04 | disposition home or self-care (01) ==
PROVIDERS: PCP Internal Medicine; Visit Provider Internal Medicine
DX: R60.9 Edema, unspecified (principal); E55.9 Vitamin D deficiency, unspecified; E53.8 Deficiency of other specified B group vitamins; E03.9 Hypothyroidism, unspecified

== ENCOUNTER 2024-06-26 14:55 | Outpatient (REF) | payer MEDICARE, SELFPAY ==
--- NOTE | ~2024-06-26 | US_ITS ---
EXAMINATION: US TRIPLEX LOWER EXTREMITY, LEFT CLINICAL INFORMATION: Edema left lower extremity. COMPARISON: None available. TECHNIQUE: Color-flow triplex imaging with spectral analysis and compression Doppler were performed on the left lower extremity. FINDINGS: Respiratory variation, normal compression and augmented flow are noted throughout the left lower extremity. The visualized common femoral vein, superficial femoral vein, profunda femoral vein, popliteal vein and midcalf peroneal and posterior tibial venous segments show no evidence of deep venous thrombosis. There is no Vega's cyst. US/US venous duplex LE LT IMPRESSION: No evidence of deep venous thrombosis involving the left lower extremity. Electronically signed by: Leon Cavazos MD 06/26/2024 03:23 PM ANTHONY
== END 2024-06-26 14:56 | disposition home or self-care (01) ==
LOC: HO.HMGCX 14:55
PROVIDERS: PCP Internal Medicine; Visit Provider Internal Medicine
DX: R60.0 Localized edema (principal); E55.9 Vitamin D deficiency, unspecified; E53.8 Deficiency of other specified B group vitamins; E03.9 Hypothyroidism, unspecified; I10 Essential (primary) hypertension
CPT/HCPCS: 36415; 80053; 82607; 82746; 83036; 83880; 85025; 93971; 96127; 99212

== ENCOUNTER → 2024-06-26 14:58 | Outpatient (BNV) | payer MEDICARE, SELFPAY | PROVIDERS: PCP Internal Medicine; Visit Provider Radiology Diagnostic Radiology | DX: R60.0 Localized edema (principal) | CPT/HCPCS: 93971 ==

== ENCOUNTER 2024-09-20 09:23 | Outpatient (AMB) | payer MEDICARE, SELFPAY ==
[2024-09-20 09:40] VITALS: BP 130/76; PULSE 78; RESP 18; TEMP 36.7; O2SAT 97; BMI 28.4
--- NOTE | 2024-09-20 09:40 | AM.OFFVISMDC ---
Intake Vital Signs 09/20/24 09:40 Height 5 ft 8 in Weight 187 lb BMI 28.4 BP 130/76 Blood Pressure Location Lt brachial Position Sitting Respiration 18 Pulse 78 Pulse Source Pulse Oximeter Temp 98.1 F Temp Source Oral Pulse Oximetry (%) 97 Oxygen Delivery Method Room Air Intake Visit Reasons: V G0439 Allergies No Known Allergies Allergy (Verified 09/20/24 09:59) Medication List - Last Reconciled 09/20/24 by Gena Ralph MD cholecalciferol (vitamin D3) 50 mcg PO DAILY ciclopirox 8% mL topical BEDTIME [coq 10 PO] hydrochlorothiazide 25 mg PO DAILY levothyroxine mcg PO melatonin 10 mg PO BEDTIME PRN pravastatin 20 mg PO DAILY rhubarb root extract (Estroven Complete Menopause Relief) mg PO HPI SWV G0439 HPI Details Initiated the conversation about Advanced Directives. Advanced Directives help? patients prepare for current and future decisions about their medical treatment? and place of care. Discussed with patient that it is a process where a patients? current condition and prognosis are reviewed, their wishes for information? regarding their illness are elicited, and likely medical dilemmas are presented? and options discussed. The form can be amended as needed, reviewed yearly and? make changes as needed IPPE/AWV ? year old presents? for her ? Annual? Wellness Visit, initial visit.? Medical / Social History Reviewed? Past Medical History ?Yes? . ? [place]? of Care / Care Team list updated ?Yes . ? Surgical/Hospitalization? History ?Yes . ? Current Medications? (including OTC and supplements) ?Yes . ? Family History ?Yes? . ? Tobacco? Control form ?Yes . ? AUDIT-C (Alcohol use) form? ?Yes . ? Illicit drug use in Social? History ?Yes . ? Current diagnosis of? depression? ?No ? Appropriate PHQ2/PHQ9? completed ?Yes . ? Data entered by ?Medical? Radio Recorder and reviewed by provider ? Fall Risk ? Fall? History? Have you had any falls with? injury in the past year? ?No . ? Have you had two or more? falls in the past year? ?No . ? Fall Risk Assessment: ?No? falls in the past year . ? HRA filled out by? the patient, reviewed by Provider and scanned. ? IPPE/AWV ? Balance? Romberg? ?Yes . ? Tandem? walk ?Yes . ? Walk and? Turn ?Yes . ? Rise from? sit to stand ?Yes . ?Vision? Corrective? lens ?Yes ? Vision? screen ? Up-to-date, has an appointment [] for vision? screening and glaucoma screening ?Hearing? Whisper? test ?pass .? Initiated the conversation about Advanced Directives. Advanced Directives help? patients prepare for current and future decisions about their medical treatment? and place of care. Discussed with patient that it is a process where a patients? current condition and prognosis are reviewed, their wishes for information? regarding their illness are elicited, and likely medical dilemmas are presented? and options discussed. The form can be amended as needed, reviewed yearly and? make changes as needed Written? Plan?Completed. See Patient? Documents. [facility] Medical History Normal pelvic exam Hyperglycemia Hypothyroidism Hyperlipidemia Annual physical exam Surgical History H/O colonoscopy Social History Housing: House Patient Tobacco Use Status: Former Tobacco user (30 years ago) e-Cigarette/Vaping Use: Never Used service: No Current occupational status: retired Cognitive needs: No Hearing needs: No Vision needs: Yes Questionnaire Medicare Wellness Checkup What [age] What gender do you identify with?: female During the past 4 weeks, how much have you been bothered by emotional problems such as feeling anxious, depressed, irritable, sad or downhearted, and blue?: not at all During the past 4 weeks, has your physical & emotional health limited your social activities with family, friends, neighbors, or groups?: not at all During the past 4 weeks, how much bodily pain have you generally had?: very mild pain During the past 4 weeks, was someone available to help you if you needed & wanted help?: yes, as much as I wanted During the past 4 weeks, what was the hardest physical activity you could do for at least 2 minutes?: light Can you get to places out of walking distance without help? (For eg., can you travel alone on buses, taxis or drive your car?): Yes Can you go shopping for groceries or clothes without someone's help?: Yes Can you prepare your own meals?: Yes Can you do your housework without help?: Yes Because of any health problems, do you need the help of another person with your personal care needs such as eating, bathing, dressing or getting around the house?: No Can you handle your own money without help?: Yes During the past 4 weeks, how would you rate your health in general?: very good During the past 4 weeks how have things been going for you?: pretty well Are you having difficulties driving your car?: no Do you always fasten your seat belt when you are in a car?: yes, usually During past 4 weeks, have you been bothered by the following: never: Sexual problems?, Trouble eating well?, Teeth or denture problems? and Problems using the telephone? and seldom: Falling or dizzy when standing up and Tiredness or fatigue? Have you fallen 2 or more times in the past year?: No Are you afraid of falling?: No Are you a smoker?: no During the past 4 weeks, how many drinks of wine, beer, or other alcoholic beverages did you have?: 2-5 drinks per week Do you exercise for about 20 minutes 3 or more times a week?: yes, some of the time Have you been given information to help with the following?: no: Hazards in your house that might hurt you? and no: Keeping track of your medications? How often do you have trouble taking medicines the way you have been told to take them?: I always take medicine as prescribed How confident are you that you can control & manage most of your health problems?: very confident What is your race?: White Mini Mental State Exam (MMSE) Orientation What is the (year) (season) (date) (day) (month)?: year, season, date, day and month Where are we (state) (county) (town or city) (hospital) (floor)?: state, county, town or city, hospital/clinic and floor Registration Name of 3 unrelated objects clearly and slowly, then ask patient to repeat all 3 of them. (1st repeat determines score. Make sure they can repeat all three): object 1, object 2 and object 3 Attention & Calculation (CHOOSE ONE) Spell WORLD backwards (DLROW): 5 letters Recall Ask patient to repeat the 3 items from question #3.: object 1, object 2 and object 3 Language Show patient a wristwatch & ask what it is. Repeat for pencil.: watch and pencil Ask the patient to repeat the phrase 'No ifs, ands, or buts' after you.: correct Ask the patient to 'take a piece of paper with their right hand' 'fold paper in half' 'place paper on floor': take paper in right hand, fold paper in half and place paper on floor Print the sentence 'CLOSE YOUR EYES' on a piece. If patient actually closes eyes then score.: followed written direction Give patient a blank piece of paper & ask to write a sentence. Score if it contains a noun & verb.: sentence contains subject and verb Score Score: 29 PHQ-9 Over the last 2 weeks, how often have you been bothered by any of the following problems? 1. Little interest or pleasure in doing things: not at all 2. Feeling down, depressed, or hopeless: not at all 3. Trouble falling or staying asleep, or sleeping too much: not at all 4. Feeling tired or having little energy: not at all 5. Poor appetite or overeating: not at all 6. Feeling bad about yourself - or that you are a failure or have let yourself or your family down: not at all 7. Trouble concentrating on things, such as reading the newspaper or watching television: not at all 8. Moving or speaking so slowly that other people could have noticed. Or the opposite - being so fidgety or restless that you have been moving around a lot more than usual: not at all 9. Thoughts that you would be better off or of hurting yourself in some way: not at all Total score: 0 Depression Screening Interpretation: Negative Depression Screening Done: Yes 49138 - PHQ-9 Billing: Yes Source: Developed by Drs. Wade Sevilla, Lesvia De Souza, Addy Gifford and colleagues, with an educational anaid from [employer]. Review of Systems Const All systems reviewed & are unremarkable except as noted in HPI and below Reports no additional complaints Eyes Reports no additional complaints ENT Reports no additional complaints Card Reports no additional complaints Resp Reports no additional complaints GI Reports no additional complaints Reports no additional complaints Physical Exam Vital Signs: Last Vital Signs Temp 98.1 F 09/20/24 09:40 Pulse 78 09/20/24 09:40 Resp 18 09/20/24 09:40 BP 130/76 09/20/24 09:40 Pulse Ox 97 09/20/24 09:40 Oxygen Delivery Method Room Air 09/20/24 09:40 BMI result Body Mass Index 28.4 Const General: no acute distress HEENT Head: Yes normal to inspection Ears: hearing grossly normal bilaterally Eyes General: appearance normal, both eyes and all related structures Neck Neck: Yes no lymphadenopathy and Yes supple Resp Effort & Inspection: normal respiratory effort Auscultation: clear to auscultation bilaterally Cardio Rhythm: regular rhythm Heart sounds: S1 normal heart sound present and S2 normal heart sound present GI Inspection: Yes normal to inspection Palpation (GI): Soft to palpation and No hepatosplenomegaly present Percussion: Yes normal to percussion Auscultation: normal bowel sounds Extrem General: Yes no clubbing, cyanosis or edema Immunizations pneumoc 20-constantino conj-dip cr(PF) 0.5 mL IM syringe Performing Provider: Gena Ralph MD Performing Location: [facility] Administered by: DANIELLE Daniel on 09/20/24 10:41 Dose Route Admin Location Dispensed Lot Number Expiration Date [facility] Refinery Technician 0.5 mL IM Left Deltoid 0.5 mL [id number] 07/31/25 [id number] [employer] VIS Given Date VIS Provided VIS Publication Date 09/20/24 Single Vaccine 21 Eligibility Eligibility Date Funding Source Not [facility] Eligible 09/20/24 Private Assessment & Plan Assessment & Plan (1) Knee pain, right: Code(s): M25.561 - Pain in right knee Plan: refer to PT , Pt will schedule PT in [place] (2) HTN (hypertension): Code(s): I10 - Essential (primary) hypertension Plan: cont HCTZ (3) Hypothyroidism: Comment: f/u by Endocrinology Code(s): E03.9 - Hypothyroidism, unspecified Plan: cont Levothyroxine (4) Hyperlipidemia: Code(s): E78.5 - Hyperlipidemia, unspecified Plan: Continue statin (5) Annual physical exam: Code(s): Z00.00 - Encounter for general adult medical examination without abnormal findings Plan: Well-balanced diet regular physical activity discussed with the patient. She is up-to-date with the mammogram at colonoscopy and DEXA Orders: Orders CA echo transthoracic complete Today I10 - Essential (primary) hypertension, R60.9 - Edema, unspecified Vitamin D 25-OH Total 6 Months E78.5 - Hyperlipidemia, unspecified, I10 - Essential (primary) hypertension, M25.561 - Pain in right knee, R73.9 - Hyperglycemia, unspecified, Z00.00 - Encounter for general adult medical examination without abnormal findings PT Evaluation and Treatment Today M25.561 - Pain in right knee Comprehensive [place]. Panel Fast 6 Months E78.5 - Hyperlipidemia, unspecified, I10 - Essential (primary) hypertension, M25.561 - Pain in right knee, R73.9 - Hyperglycemia, unspecified, Z00.00 - Encounter for general adult medical examination without abnormal findings Complete Blood Count Auto Diff 6 Months E78.5 - Hyperlipidemia, unspecified, I10 - Essential (primary) hypertension, M25.561 - Pain in right knee, R73.9 - Hyperglycemia, unspecified, Z00.00 - Encounter for general adult medical examination without abnormal findings Lipid Panel 6 Months E78.5 - Hyperlipidemia, unspecified, I10 - Essential (primary) hypertension, M25.561 - Pain in right knee, R73.9 - Hyperglycemia, unspecified, Z00.00 - Encounter for general adult medical examination without abnormal findings Hemoglobin A1c 6 Months E78.5 - Hyperlipidemia, unspecified, I10 - Essential (primary) hypertension, M25.561 - Pain in right knee, R73.9 - Hyperglycemia, unspecified, Z00.00 - Encounter for general adult medical examination without abnormal findings Pneumococcal 20 Immunization Today Z23 - Encounter for immunization Medications: Refilled hydrochlorothiazide 25 mg PO DAILY 90 tabs 3RF pravastatin 20 mg PO DAILY 90 tabs 3RF Quality Reporting (2019) Depression/Bipolar (159/160/161/177) PHQ-9: Total score: 0 Coding Level of Care Code Medicare Subsequent (G0439) Diagnoses Knee pain, right M25.561 HTN (hypertension) I10 Hypothyroidism E03.9 Hyperlipidemia E78.5 Annual physical exam Z00.00 CPT Codes Advance Care Planning - Advance Care Planning discussion: On file, no changes ([id number]) Advance Care Planning - Time spent: 1-15 minutes, on File ([id number]) Additional Codes PHQ-9 - 03561 - PHQ-9 Billing: Yes ([id number]) Advance Care Planning Advance Care Planning discussion: On file, no changes Forms completed: Health Care Proxy Time spent: 1-15 minutes, on File Did not discuss due to Cultural/Spiritual beliefs: Yes
--- OUTSIDE RECORDS SUMMARY | 2024-09-20 10:43 | XMS_ITS | Clinical Summary ---
Author Organization [facility] Address [address] [place] [address] Care Team Providers Care Patient Admitting Representative Name Role Phone Pcp, No Primary Care Provider Unavailabl e Allergies No known active allergies Medications No known medications Social History Tobacco Use Types Packs/Day Years Used Date Smoking Tobacco: Never Smokeless Tobacco: Never Comments Unknown Sex and Gender Information Value Date Recorded Sex Assigned at Not on file Legal Sex Female 10:39 AM EST Gender Identity Not on file Sexual [...] Bone Density (Females,Ages 65 and older) 2017 COVID-19 Vaccine (3 - 2023-2 5 season) 2024 07/15/2020, 06/24/2020 Influenza Vaccine 12/01/2024 RSV Vaccine 60 years and older and Patients (1 - 1-dose 75+ series) 11/21/2027 Hepatitis B Vaccines Aged Out No long er eligible based on patient's age to complete this topic Insurance MEDICARE PART A & B [place] [id number] Care Teams Patient Admitting Representative Relationship Specialty Start Date End Date Pcp, No PCP - General General Medicine 04/26/20
--- OUTSIDE RECORDS SUMMARY | 2024-09-20 10:43 | XMS_ITS | Clinical Summary ---
Author Organization [facility] Address [address] [place] [address] Phone Care Team Providers Care Oral Therapist Name Role Phone Gena Ralph MD Primary Care Provider [phone] Allergies No known active allergies Medications pravastatin (PRAVACHOL) 20 MG tablet Take 20 mg by mouth daily. 4 Active cholecalciferol (VITAMIN D3) 2,000 unit capsule Take by mouth daily. Active coenzyme Q10 100 mg capsule Take 100 mg by mouth daily. Active melatonin 10 mg Cap Take by mouth. Active LEVOXYL 25 mcg tabletIndications: Acquired hypothyroidism TAKE 1 TABLET BY MOUTH daily 3 days/week, skip four days/week, or as directed. 66 tablet 1 5 Active Medication-Free TextIndications:Ac quired hypothyroidism Take 1 capsule by mouth daily. THYROID EXTRACT (METHOCEL/A VICEL) 10.5 MG CAP 90 capsule 1 5 Active Medication-Free TextIndications:Ac quired hypothyroidism Take 1 capsule by mouth daily. THYROID EXTRACT (METHOCEL/A VICEL) 10.5 MG CAP 90 capsule 1 4 08/26/19 25 Discontin ued(Reord er) LEVOXYL 25 mcg tabletIndications: Acquired hypothyroidism TAKE 1 TABLET BY MOUTH daily five days/week, skip two days/week, or as directed. 66 tablet 1 5 08/23/19 25 Discontin ued(Dose adjustmen t) Active Problems Problem Noted Date Diagnosed Date [...] Encounters Date Type Department Care Team Description 08/25/2024 Refill [facility] Diabetes [address] [place] [address] Peyton Elder Medication Refill 08/22/2024 Orders Only [facility] Endocrinology [place] [address] [place] [address] Marlys Fournier MD Acquired hypothyroidism 08/22/2024 Telephone [facility] Endocrinology [address] [address] Marlys Fournier MD 08/22/2024 Orders Only [facility] [place] [address] [place] [address] [place] [address] Silvia Card MA Acquired hypothyroidism 06/28/2024 Telephone [facility] Endocrin[facility] [address] [place] [address] [place] [address] Marlys Fournier MD Medication Question from Last 3 Months Family History Medical [...] 11:00 AM EDT Office Visit [facility] [address] [place] [address] Marlys Fournier MD [address] [place] [phone] [email or web address] Health Maintenance Due Date Last Done Comments Adult Td,Tdap Booster 1950 LIPID PANEL 1950 DEPRESSION SCREENING 1964 SMOKING Hx and SMOKELESS TOBACCO SCREENING 1965 HEPATITIS C SCREENING 1970 MAMMOGRAM 1992 COLOGUARD 1997 COLONOSCOPY 1997 COLORECTAL CANCER SCREENING 1997 FIT TEST 1997 FOBT 1997 SIGMOIDOSCOPY 1997 VIRTUAL COLONOSCOPY 1997 PNEUMOCOCCAL VACCINES (50+ years) (1 of 1 - PCV) 2002 OSTEOPOROSIS SCREENING INITIAL (ONE-TIME) 2017 ZOSTER VACCINES (2 of 3) 12/22/2017 10/27/2017 COVID-19 VACCINE (1 - 2023- season) 2024 TSH LEVEL 08/19/2025 08/19/2024, 12/, 01/22/2024, Additional history exists RSV VACCINE (1 - 1-dose 75+ series) 11/21/2027 HEPATITIS A VACCINES Aged Out No long er eligible based on patient's age to complete this topic HIB VACCINES Aged Out No longer eligi ble based on patient's age to complete this topic MENINGOCOCCAL VACCINES (ACWY) Aged Out No longer eligible based on patient's age to complete this topic MENINGOCOCCAL VACCINES (B) Aged Out N o longer eligible based on patient's age to complete this topic Medical Devices Not on file Procedures Procedure Name Priority Date/Time Associated Diagnosis Comments FREE T4 Routine 08/19/2024 1:25 PM EDT Acquired hypothyroidism TSH Routine 08/19/2024 1:24 PM EDT Acquired hypothyroidism FREE T3 Routine 08/19/2024 1:24 PM EDT Acquired hypothyroidism from Last 3 Months Results * Free T4 (08/19/2024 1:25 PM EDT) Blood Marlys Fournier MD LAB BLOOD ORDERABLES F inal Result Performing Organization Address City/[facility]/ZIP Co de Phone Number [address] [address] * TSH (08/19/2024 1:24 PM EDT) Blood us Marlys Fournier MD LAB BLOOD ORDERABLES F inal Result Performing Organization Address City/[facility]/ZIP Co de Phone Number [address] [address] * Free T3 (08/19/2024 1:24 PM EDT) Blood Marlys Fournier MD LAB BLOOD ORDERABLES F inal Result [facility] [address] [place] [address] from Last 3 Months Insurance MEDICARE PART A & B [facility] MEDICARE REPLACEMENT MEDICARE PART A & B MEDICARE REPLACEMENT MEDICARE PART A & B [facility] MEDICARE REPLACEMENT MEDICARE PART A & B MEDICARE REPLACEMENT MEDICARE PART A & B Member Subscriber Plan / Payer (Ef fective 2017-Present) Name:Opal Gonzales Member ID:[id number] Relation to Subscriber:Self Name:Opal Gonzales Subscriber ID:[id number] Payer ID:[id number] Group ID:Not on file Type:Medicare Address: [employer] [address] MEDICARE REPLACEMENT MEDICARE PART A & B [facility] MEDICARE REPLACEMENT Care Teams Oral Therapist Relationship Specialty Start Date End Date Gena Ralph MD [address] [place] [address] PCP - General Internal Medicine 07/26/23 Additional Source Comments The information contained in this document represents components of the legal health record. It is not the complete legal health record.[facility]
--- OUTSIDE RECORDS SUMMARY | 2024-09-20 10:43 | XMS_ITS | Encounter Summary ---
Author Organization [facility] Address [address] [place] [id number] Phone Care Team Providers Care Technical Spec Name Role Phone Gena Ralph MD Primary Care Provider [phone] Encounter Details Date Type Department Care Team (Late st Contact Info) Description 08/22/2024 Orders Only [facility] [address] [place] [address] Silvia Card MA [address] [place] [address] [email or web address] Acquired hypothyroidism Social History Tobacco Use Types [...] AM EDT Office Visit [facility] [address] [place] [address] Marlys Fournier MD [address] [place] [phone] [email or web address] documented as of this encounter Procedures Procedure Name Priority Date/Time Associated Diagnosis Comments FREE T4 Routine 08/19/2024 1:25 PM EDT Acquired hypothyroidism TSH Routine 08/19/2024 1:24 PM EDT Acquired hypothyroidism FREE T3 Routine 08/19/2024 1:24 PM EDT Acquired hypothyroidism documented in this encounter Results * Free T4 (08/19/2024 1:25 PM EDT) Blood us Marlys Fournier MD LAB BLOOD ORDERABLES F inal Result Performing Organization Address [facility] Co de Phone Number [address] [address] * TSH (08/19/2024 1:24 PM EDT) Blood us Marlys Fournier MD LAB BLOOD ORDERABLES F inal Result Performing Organization Address [facility]/ZIP Co de Phone Number [address] [address] * Free T3 (08/19/2024 1:24 PM EDT) Blood us Marlys Fournier MD LAB BLOOD ORDERABLES F inal Result Performing Organization Address [facility] Co de Phone Number [address] [phone] documented in this encounter Visit Diagnoses Diagnosis Acquired hypothyroidism Unspecified hypothyroidism documented in this encounter Care Teams Technical Spec Relationship Specialty Start Date End Date Gena Ralph MD [address] [place] [address] PCP - General Internal Medicine 07/26/23 documented as of this encounter Additional Source Comments The information contained in this document represents components of the legal health record. It is not the complete legal health record.[facility]
== END 2024-09-20 10:38 | disposition home or self-care (01) ==
LOC: HO.HMCC 09:24
PROVIDERS: PCP Internal Medicine; Visit Provider Internal Medicine
DX: Z00.00 Encounter for general adult medical examination without abnormal findings (principal); M25.561 Pain in right knee; I10 Essential (primary) hypertension; E03.9 Hypothyroidism, unspecified; E78.5 Hyperlipidemia, unspecified; Z23 Encounter for immunization

== ENCOUNTER → 2024-09-20 09:23 | Outpatient (BNVA) | payer MEDICARE, SELFPAY | PROVIDERS: PCP Internal Medicine; Visit Provider Internal Medicine | DX: Z00.00 Encounter for general adult medical examination without abnormal findings (principal); Z23 Encounter for immunization; M25.561 Pain in right knee; I10 Essential (primary) hypertension; E03.9 Hypothyroidism, unspecified; E78.5 Hyperlipidemia, unspecified | CPT/HCPCS: 90471; 90677; 96127 ==

== ENCOUNTER → 2024-10-24 13:37 | Outpatient (REF) | payer MEDICARE, SELFPAY ==
--- OUTSIDE RECORDS SUMMARY | 2011-11-07 | XMS_ITS | Encounter Summary ---
Author Organization [facility] Address [address] [facility] [address] [place] [phone] Phone Care Team Providers Care Glass Or Mirror Inspector Name Role Phone Unavailable Primary Care Provider Unavailabl e Encounter Details Date Type Department Care Team (Late Contact Info) Description 11/07/2011 Hospital Encounter [facility],Outside Imaging [address] [place] [address] Unknown, Unknown, Social History Tobacco Use Types Packs/Day Years Used Date Smoking Tobacco: Former Cigarettes Smokeless Tobacco: Never Alcohol Use Standard Drinks/Week Comments Yes 7 (1 standard drink = 0.6 oz pur e alcohol) Education Answer Date Recorded Are you interested in more education? Not on [place] e 08/27/2022 Are you concerned about learning? Not on file 08/27/2022 No 08/27/2022 No 08/27/2022 Digital Access Answer Date Recorded No 09/28/2022 No 09/28/2022 Reliable internet access at home? Not on file 09/28/2022 Device with a working camera? Not on file Comments Unknown Sex and Gender Information Value Date Recorded Sex Assigned at Not on file Legal Sex Female 7:35 PM EST Gender Identity Not on file Sexual Orientation Not on file documented as of this encounter Plan of Treatment Upcoming Encounters Date Type Department Care Team (Late st Contact Info) Description 10/18/2025 11:00 AM EDT Office Visit [facility] [address] [place] [address] Marlys Fournier MD [address] [facility] [address] [place] [address] documented as of this encounter Procedures Procedure Name Priority Date/Time Associated Diagnosis Comments US THYROID GLAND OUTSIDE (NO INTERPRETATION) Routine 11/07/2011 12:00 AM EDT documented in this encounter Results * US Thyroid Gland Outside (No Interpretation) (11/07/2011 12:00 AM EDT) Narrative SYSTEMGENERATED, DOCUMENTATION - 10/18/2024 4:20 PM EDT This study is for PACS storage only and not for interpretation. us Unknown Unknown MD [facility] W/OUT INT ERPRETATION Final Result documented in this encounter Visit Diagnoses Not on filedocumented in this encounter Additional Source Comments The information contained in this document represents components of the legal health record. It is not the complete legal health record.[facility]
--- NOTE | 2024-10-24 13:43 | CA_ITS ---
Transthoracic Echocardiogram Patient (Last, First, Middle): Opal Gonzales, Gender: Female Date of : 1950 Age: 73 Procedure Date: 10/24/2024 Procedure Type: Transthoracic Echocardiogram Location: OP Height: 172.72 cm Weight: 84.82 kg BSA: 1.99 m2 Heart Rate: 62 bpm BP: 130 / 76 mmHg [employer] Operator: SB Referring MD: Gena Ralph MD Symptoms: I10 - Essential (primary) hypertension Study Quality: Adequate ECG Rhythm: Sinus Conclusions: - The left ventricular systolic function is normal. The visually estimated ejection fraction is between 55-60%. - No obvious valvular pathology seen on this study. Findings Left Ventricle Normal left ventricular cavity size. There is normal left ventricular wall thickness. The left ventricular systolic function is normal. The visually estimated ejection fraction is between 55-60%. There is no evidence of regional wall motion abnormalities. Diastolic function is normal for age. Right Ventricle Normal right ventricular cavity size and systolic function. Atria Both atria are normal in size. Aortic Valve There is a normal trileaflet aortic valve. There is no aortic valve stenosis. There is trace (trivial) aortic valve regurgitation. Mitral Valve The mitral valve appears normal. There is no mitral valve regurgitation. There is no mitral valve stenosis. Pulmonic Valve The pulmonic valve is likely normal. Tricuspid Valve There is no tricuspid valve regurgitation. There is no evidence of pulmonary hypertension. Great Vessels The asc aorta is normal in size. Venous The inferior vena cava is normal in size and collapses greater than 50% with inspiration. Pericardium/Pleural Very small pericardial effusion seen over left ventricle. Prior Study Comparison No prior study available for comparison. Recommendations, Care & Conclusions No obvious valvular pathology seen on this study. Measurements 2D Linear Measurements IVSd: 0.91 0.6-0.9/0.6-1.0 cm LVIDd: 4.87 3.9-5.3/4.2-5.9 cm LVIDd Index: 2.45 2.4-3.2/2.2-3.1 cm/m2 LVIDs: 3.27 2.0-3.6 cm LVPWd: 0.77 0.7-1.1 cm LA Diam: 2.80 2.7-3.8/3.0-4.0 cm LAIDs Index: 1.41 1.5-2.3 cm/m2 LV Mass: 171.60 67-162/88-224 g LV Mass Index: 86.23 43-95/49-115 g/m2 LVOT Diam: 2.20 3.0+(-)1.3 cm 2D Systolic Function EF 4C: 55.80 >55% EF 2C: 51.50 >55% EF BiP: 54.20 >55% Mitral Valve MV Pk E: 0.64 MV PK A: 0.63 MV Decel Time: 236.00 E/A: 1.00 E'Lateral: 7.18 E'Medial: 6.85 E/E' Med: 9.40 E/E' Lat: 9.00 PHT: 69.00 MVA PHT: 3.19 Decel [place]: 2.73 Aortic Valve AoV Pk Dick: 1.28 AoV Pk Grad: 7.00 AMARILIS: 2.79 LVOT LVOT Pk Dick: 0.91 LVOT Mn Dick: 0.63 LVOT VTI: 0.20 LVOT Pk Grad: 3.00 LVOT Mn Grad: 2.00 LVOT Diam: 2.20 LVOT Area: 3.80 Diastolic Function MV Pk E: 0.64 MV Pk A: 0.63 E/A: 1.00 E'Medial: 6.85 E/E' Med: 9.40 E' Laterial: 7.18 E/E' Lat: 9.00 Right Ventricle TAPSE (mm): 24.90 TVS' Dick: 12.90 Tricuspid Valve TR Pk Dick: 2.29 TR Pk Grad: 21.00 RA Press: 3.00 RVSP: 24.00 Great Vessels Aorta Sinus of Valsalva: 3.20 2.0-3.5 cm Ao Asc: 3.10 2.1-3.4 cm Pulmonary Veins Pulm Vein S/D 1.40 Pulmonary Valve PV Pk Dick: 0.85 Peak PV Grad: 3.00 Updated in Other Vendor System with Status of Final Suresh Luu MD electronically signed on 10/25/2024 9:24:30 AM with status of Final
== END ==
LOC: HO.CARD 13:37
PROVIDERS: PCP Internal Medicine; Visit Provider Internal Medicine
DX: I10 Essential (primary) hypertension (principal); R60.9 Edema, unspecified
CPT/HCPCS: 93306

== ENCOUNTER → 2024-10-24 13:43 | Outpatient (BNV) | payer MEDICARE, SELFPAY | PROVIDERS: PCP Internal Medicine; Visit Provider Internal Medicine | DX: I31.39 Other pericardial effusion (noninflammatory) (principal) | CPT/HCPCS: 93306 ==